=== PATIENT | female | born 2005 | race Two or more races ===

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

== ENCOUNTER 2024-11-15 11:52 | Emergency (ER) | payer BC, OTHER ==
[~2024-11-15] VITALS: Ht 160 cm; Wt 72.4 kg
[~2024-11-15 11:52] MED LIST changes: -BUPIVACAINE 0.25% INJ 50ML VIAL ONE; -DexAMETHasone SOD PHOS 10MG/1ML VIAL INJ ONE; -GLYCOPYRROLATE 0.2 MG/ML 1ML VIAL ONE; -HYDROmorphone HCL 2 MG/ML VL ONE; -MIDAZOLAM HCL 2MG/2ML 2ml VIAL (1mg/ml) ONE; -ONDANSETRON HCL 4 MG/2 ML VIAL ONE; -PROPOFOL 10 MG/ML 20 ML IV ONE; -ceFAZolin 1GM/50ML 50 ML IV ONE
[2024-11-15 11:53] VITALS: BP 135/88; PULSE 98; RESP 18; TEMP 98.2; O2SAT 97
[2024-11-15] MEDS ORDERED: LIDOCAINE VISCOUS 2% 15ML UD PO ONE (12:15)
[2024-11-15] MEDS ORDERED: DONNATAL 5ml ORAL Elix (BELLADONNA ALK-PHENOBARB) PO ONE (12:15)
[2024-11-15] MEDS ORDERED: ONDANSETRON HCL 4 MG/2 ML VIAL IV ONE (12:15)
[2024-11-15] MEDS ORDERED: MAALOX PLUS or MAALOX 30 ML PO ONE (12:15)
[2024-11-15] MEDS ORDERED: SODIUM CHLORIDE 0.9% 1,000 ML IV ONE (12:15)
--- NOTE | 2024-11-15 12:28 | ED.PDOC ---
GI ASSESSMENT HPI Comments 19y F who presents to the ED for chief complaint of upper abdominal pain. Pt states she has been having epigastric abdominal pain for the past 3 days. Pt states the pain is constant burning/pressure-like, non-radiating, with associated exacerbation of pain after eating and some relief of pain after taking OTC omeprazole. Pt states her burning epigastric went away last night at approx 1900 but states she has been having a "grumbling " sensation in her stomach with noted pain in the epigastric region.Pt has been having associated nausea and vomiting but otherwise denies diarrhea, fever, cough, chills, dysuria, hematuria, or hematemesis. Pt otherwise denies any recent sick contacts or changes to diet. Pt otherwise has stable vitals in the ED with temp of 98.2 F, BP 135/88, and 02 sat of 97% on room air. Pt otherwise denies any other symptoms at this time. Chief Complaint: Abdominal Pain Time Seen by MD: 12:15 Reviewed Notes: Medications, Allergies Allergies: Coded Allergies: NO KNOWN ALLERGIES (Unverified , 02/18/21) Home Meds Active Scripts Acetaminophen (Tylenol Extra Strength) 500 Mg Tab, 1000 MG PO Q6HP PRN, #30 TAB Prov:JOLENE ARAUZ MD 11/15/24 Cephalexin Monohydrate (Cephalexin) 500 Mg Cap, 1 CAP PO QID for 10 Days, #40 CAP Prov:JOLENE ARAUZ MD 11/15/24 Metoclopramide Hcl (Reglan) 10 Mg Tab, 10 MG PO QID PRN, #20 TAB Prov:JOLENE ARAUZ MD 11/15/24 Omeprazole Magnesium (Omeprazole) 20 Mg Tab, 20 MG PO DAILY, #30 TAB Prov:JOLENE ARAUZ MD 11/15/24 Reported Medications Hydrocodone-Acetaminophen ([place] 5-325 mg) 5-325 Tab, 1 TAB PO Q6HPRN, #20 TAB 02/25/21 Information Source: Patient, Relative (Mother) Mode of Arrival: Ambulatory Past Medical History PAST MEDICAL HISTORY: Denies Surgical History: Denies all surgeries HOME ADVISOR History: Denies all HOME ADVISOR Hx Family History Family History: Reviewed,noncontributory to illness Social History Smoker: Non-Smoker Alcohol: Denies ETOH Use Drugs: Denies Drug Use Lives In: Home Constitutional: denies: chills, diaphoresis, fatigue, fever, malaise, sweats, weakness, others EENTM: denies: blurred vision, double vision, ear bleeding, ear discharge, ear drainage, ear pain, ear ringing, eye pain, eye redness, hearing loss, mouth pain, mouth swelling, nasal discharge, nose bleeding, nose congestion, nose pain, photophobia, tearing, throat pain, throat swelling, voice changes, others Respiratory: denies: cough, hemoptysis, orthopnea, SOB at rest, shortness of breath, SOB with excertion, stridor, wheezing, others Cardiovascular: denies: chest pain, dizzy spells, diaphoresis, Dyspnea on exertion, edema, irregular heart beat, left arm pain, lightheadedness, palpitations, PND, syncope, others Gastrointestinal: reports: abdominal pain, nausea, vomiting; denies: abdomen distended, blood streaked bowels, constipated, diarrhea, dysphagia, difficulty swallowing, hematemesis, melena, poor appetite, poor fluid intake, rectal bleeding, rectal pain, others Genitourinary: denies: abnormal vagina bleeding, burning, dyspareunia, dysuria, flank pain, frequency, hematuria, incontinence, pain, , vagina dis charge, urgency, others Neurological: denies: dizziness, fainting, headache, left sided numbness, left sided weakness, numbness, paresthesia, pre-existing deficit, right sided numbness, right sided weakness, seizure, speech problems, tingling, tremors, weakness, others Musculoskeletal: denies: back pain, gout, joint pain, joint swelling, muscle pain, muscle stiffness, neck pain, others Integumetry: denies: bruises, change in color, change in hair/nails, dryness, laceration, lesions, lumps, rash, wounds, others Allergic/Immunocompromised: denies: Difficulty Healing, Frequent Infections, Hives, Itching, others Hematologic/Lymphatic: denies: anemia, blood clots, easy bleeding, easy bruising, swollen glands, others Endocrine: denies: excessive hunger, excessive sweating, excessive thirst, excessive urination, flushing, intolerance to cold, intolerance to heat, unexplained weight gain, unexplained weight loss, others Psychiatric: denies: anxiety, bipolar disorder, depression, hopeless, panic disorder, schizophrenia, sleepless, suicidal, others All Other Systems: Reviewed and Negative Physical Exam General Appearance: No Apparent Distress, Obese HEENT: Other (Pupils and face symmetric. Moist mucous membranes.) Neck: Full Range of Motion, Normal Inspection Respiratory: Lungs Clear, No Accessory Muscle Use, No Respiratory Distress, Normal Breath Sounds Cardiovascular: No Edema, No JVD, Regular Rate/Rhythm Breast Exam: Deferred Gastrointestinal: Epigastric, LUQ, RUQ, Tenderness, Other (No Moreno's sign) Genitalia: Deferred Pelvic: Deferred Rectal: Deferred Extremities: Normal inspection, Normal range of motion, Non-tender, No pedal edema Neurologic: Alert (Oriented x4), Normal Affect, Normal Mood, Other (Ambulatory) Cerebellar Function: NOT DONE Reflexes: NOT DONE Skin: Dry, Normal Color, Warm Lymphatic: NOT DONE Was a procedure done? Was a procedure done?: No GI differential Dx Differential Diagnosis: Appendicitis, Cholecystitis, Diverticular disease, Esophagitis, Gastritis/PUD, Gastroenteritis, Pancreatitis, UTI, Dehydration, Diabetes/ DKA, Electrolyte Imbalance, Food Poisoning, , Bacterial, Viral, Hypovolemia, Stress Ulcer X-Ray, Labs, Meds, VS Vital Signs Date Time Temp Pulse Resp B/P (MAP) Pulse Ox O2 Delivery O2 Flow Rate FiO2 11/15/24 11:53 98.2 98 18 135/88 97 98.2 Lab Test 11/15/24 13:42 11/15/24 12:24 Range/Units Urine Color Yellow Yellow Urine Clarity Turbid H Clear Urine pH 6.0 5.0-9.0 Urine Specific [place] 1.031 1.001-1.035 Urine Protein 1+ H Negative Urine Ketones 4+ H Negative Urine Blood 3+ H Negative /uL Urine Nitrite Negative Negative Urine Bilirubin Negative Negative Urine Urobilinogen Normal Negative mg/dL Urine Leukocyte Esterase 1+ Negative /uL Urine RBC 6 0 - 4 /hpf Urine Microscopic WBC 9 H 0-5 /HPF Urine Squamous Epithelial Cells Mod <5 /hpf Urine Bacteria Few H None Seen /hpf Urine Mucus Moderate None Seen Urine Glucose Normal Normal mg/dL Urine Test Positive Negative White Blood Count 12.5 H 4.4-10.8 10^3/uL Red Blood Count 4.45 4.0-5.20 10^6/uL Hemoglobin 13.9 12.2-16.2 g/dL Hematocrit 40.8 36.0-46.0 % Mean Corpuscular Volume 91.8 80.0-100.0 fL Mean Corpuscular Hemoglobin 31.2 28.0-32.0 pg Mean Corpuscular Hemoglobin Concent 34.0 32.0-36.0 g/dL Red Cell Distribution Width 14.6 H 11.8-14.3 % Platelet Count 327 140-450 10^3/uL Mean Platelet Volume 8.7 6.9-10.8 fL Neutrophils (%) (Auto) 77.4 37.0-80.0 % Lymphocytes (%) (Auto) 12.9 10.0-50.0 % Monocytes (%) (Auto) 9.0 0.0-12.0 % Eosinophils (%) (Auto) 0.4 0.0-7.0 % Basophils (%) (Auto) 0.3 0.0-2.0 % Neutrophils # (Auto) 9.7 H 1.6-8.6 10 ^3/uL Lymphocytes # (Auto) 1.6 0.4-5.4 10 ^3/uL Monocytes # (Auto) 1.1 0-1.3 10 ^3/uL Eosinophils # (Auto) 0 0-0.8 10 ^3/uL Basophils # (Auto) 0 0-0.2 10 ^3/uL Nucleated Red Blood Cells 0.0 % Sodium Level 137 136-145 mmol/L Potassium Level 3.7 3.5-5.1 mmol/L Chloride Level 103 98-107 mmol/L Carbon Dioxide Level 25 20-31 mmol/L Anion Gap 9 5-15 Blood Urea Nitrogen 7 L 9-23 mg/dL Creatinine 0.78 0.550-1.02 mg/dL Glomerular Filtration Rate Calc 111 >90 mL/min BUN/Creatinine Ratio 9.0 L 10.0-20.0 Serum Glucose 108 H 74-106 mg/dL Calcium Level 9.7 8.7-10.4 mg/dL Total Bilirubin 0.6 0.2-1.0 mg/dL Aspartate Amino Transferase (AST) 22 13-40 U/L Alanine Aminotransferase (ALT) 17 7-40 U/L Alkaline Phosphatase 57 46-116 U/L Total Protein 7.9 5.7-8.2 g/dL Albumin 5.1 H 3.2-4.8 g/dL Lipase 40 12-53 U/L X-Ray, Labs, Meds, VS Comment 19-year-old female with no significant past medical history complaining of epigastric pain, nausea and vomiting Vitals unremarkable Exam remarkable for epigastric and bilateral upper quadrant tenderness to palpation Rhythm strip independently interpreted by me: Sinus rhythm, rate 98, no ectopy. CT abdomen and pelvis ordered, however was not performed due to new finding of CBC, CMP, lipase unremarkable UA abnormal consistent with UTI Urine positive The following treatment was ordered for the patient in the ED: 1 L 0.9 normal saline IV bolus, Zofran 4 mg IV, viscous lidocaine 10 mL/ 10 mL, Maalox 30 mL p.o., Rocephin 1 g IV Patient was called for re-evaluation, however there was no answer. Patient was tolerating p.o. fluids prior to coming to the ED, and findings of and urinary tract infection adequately explain the patient's symptoms. We will continue to attempt to locate the patient for re-evaluation, however prescription for antibiotics, antiemetics and acid reducers will be sent to her pharmacy. Rx omeprazole, Reglan, Keflex, Tylenol Nursing notes reviewed, noted that the patient eloped from the ED at 1:19 p.m.. Time of 1ST Reevaluation: 13:25 Reevaluation 1ST: N/A Patient Education/Counseling: Diagnosis, Treatment Family Education/Counseling: Diagnosis, Treatment SEPSIS Sepsis Screen Date sepsis recognized/suspect: Nov 15, 2024 Time Sepsis recognized/suspect: 1154 Recent Procedure: No On Antibiotic Therapy: No Respiratory Rate >20: No Heart Rate >90: Yes Temp<36 C (96.8 F) or >38.3 C: No SBP <90 or MAP <65 mmHG: No New Acute Mental Status Change: No Is the patient on CPAP, BIPAP,: No SEPSIS EXCLUSION NOTE: Sepsis Exclusion Note: Patient presents with SIRS criteria, but the SIRS response is attributed to [abdominal pain, nausea and vomiting ], not sepsis. Sepsis bundle is not initiated at this time, due to this reason. Further management will focus on the treatment of the above condition (s). Vital Signs Date Time Temp Pulse Resp B/P (MAP) Pulse Ox O2 Delivery O2 Flow Rate FiO2 11/15/24 11:53 98.2 98 18 135/88 97 98.2 Laboratory Tests Test 11/15/24 12:24 White Blood Count 12.5 10^3/uL (4.4-10.8) H Departure 1 Departure Time of Disposition: 15:11 Impression: Primary Impression: Additional Impression: UTI (urinary tract infection) Disposition: 07 LEFT AWOL/ELOPED Condition: Stable Additional Instructions: Your blood tests were unremarkable. Your urine test showed your and also have a urinary tract infection. I have prescribed medication for your symptoms. I have also prescribed antibiotics to treat your infection. Follow- up with your primary doctor in 1-2 days referral to an OBGYN for care. Alternatively, follow-up directly with Dr. Kennedy. Return to ER for persistent or worsening symptoms. e-Prescriptions Acetaminophen (Tylenol Extra Strength) 500 Mg Tab 1000 MG PO Q6HP PRN, #30 TAB Prov: JOLENE ARAUZ MD 11/15/24 Cephalexin Monohydrate (Cephalexin) 500 Mg Cap 1 CAP PO QID for 10 Days, #40 CAP Prov: JOLENE ARAUZ MD 11/15/24 Metoclopramide Hcl (Reglan) 10 Mg Tab 10 MG PO QID PRN, #20 TAB Prov: JOLENE ARAUZ MD 11/15/24 Omeprazole Magnesium (Omeprazole) 20 Mg Tab 20 MG PO DAILY, #30 TAB Prov: JOLENE ARAUZ MD 11/15/24 Discharged With: Relative (Mother) Critical Care Note Critical Care Time?: No Stability Stability form required: No Heart Score Heart Score: Heart Score Response (Comments) Value History N/A 0 EKG N/A 0 Age N/A 0 Risk Factors N/A 0 Troponin N/A 0 Total 0 I personally scribed for JOLENE ARAUZ MD ([email or web address]) on 11/15/24 at 12:28. Electronically submitted by Madeline Andrea ([email or web address]). JOLENE ARAUZ MD Nov 15, 2024 12:28
[2024-11-15 12:37] LABS: Hematocrit 40.8 % (36.0-46.0); Hemoglobin 13.9 g/dL (12.2-16.2); Mean Corpuscular Hemoglobin 31.2 pg (28.0-32.0); Mean Corpuscular Volume 91.8 fL (80.0-100.0); Nucleated Red Blood Cells % 0.0 %
[2024-11-15 12:56] LABS: Alanine Aminotransferase 17 U/L (7-40); Alkaline Phosphatase 57 U/L (46-116); Calcium 9.7 mg/dL (8.7-10.4); Carbon Dioxide 25 mmol/L (20-31); Chloride 103 mmol/L (98-107)
[2024-11-15 12:57] LABS: Albumin 5.1 g/dL (3.2-4.8); Anion Gap 9 (5-15); BUN/Creatinine Ratio 9.0 (10.0-20.0); Bilirubin, Total 0.6 mg/dL (0.2-1.0); Blood Urea Nitrogen 7 mg/dL (9-23); Glucose 108 mg/dL (74-106); Lipase 40 U/L (12-53); Potassium 3.7 mmol/L (3.5-5.1); Sodium 137 mmol/L (136-145); Total Protein 7.9 g/dL (5.7-8.2)
[2024-11-15] MEDS ORDERED: OMEP-434 PO (13:28)
[2024-11-15] MEDS ORDERED: ZOFR4T PO (13:28)
[2024-11-15 14:21] LABS: Urine Protein, UAD 1+ (Negative)
[2024-11-15] MEDS ORDERED: cefTRIAXone 1GM/50ML D5W 50 ML IV ONE (15:15)
[2024-11-15] MEDS ORDERED: CEPH500C PO (15:18)
[2024-11-15] MEDS ORDERED: METO-281 PO (15:18)
[2024-11-15] MEDS ORDERED: ACET-1304 PO (15:18)
== END 2024-11-15 13:30 | disposition left against medical advice (07) ==
LOC: ER 11:52
DX: O23.41 Unspecified infection of urinary tract in pregnancy, first trimester (principal); N39.0 Urinary tract infection, site not specified; Z3A.00 Weeks of gestation of pregnancy not specified; Z79.899 Other long term (current) drug therapy
CPT/HCPCS: 36415; 80053; 81001; 81025; 83690; 85025